=== PATIENT | female | born 1935 | race Caucasian/White ===

== ENCOUNTER 2021-09-07 06:06 | Inpatient (IN) | payer OTHER ==
[2021-09-07 06:18] VITALS: BMI 25.7
[2021-09-07] MEDS ORDERED: ACETAMINOPHEN 1000 MG/100 ML BAG IVPB ONE (07:35)
[2021-09-07] MEDS ORDERED: ONDANSETRON 4 MG/2 ML VIAL IVPUSH ONE (07:41)
[2021-09-07] MEDS ORDERED: ACETAMINOPHEN INJECTION 100 ML IVPB ONE (08:42)
[2021-09-07] MEDS ORDERED: ONDANSETRON 4 MG/2 ML VIAL ONE (08:43)
[2021-09-07 09:02] LABS: HEMATOCRIT 30.9 % (32.4-45.2); HEMOGLOBIN 10.6 GM/dL (10.7-15.3); MCH 29.2 pg (25.7-33.7); MCHC 34.4 g/dl (32.0-36.0); MEAN CELL VOLUME 84.8 fl (80-96); PLATELET COUNT 168 10^3/uL (134-434); RBC 3.65 M/mm3 (3.60-5.2); RDW 14.1 % (11.6-15.6); WHITE BLOOD COUNT 4.2 K/mm3 (4.0-10.0)
[2021-09-07 09:24] LABS: INR 1.15 (0.83-1.09); PROTHROMBIN TIME (PATIENT) 13.3 SEC (9.7-13.0)
[2021-09-07 09:26] LABS: ACTIVATED PTT 33.7 SECONDS (25.2-36.5)
[2021-09-07 09:29] LABS: CALCIUM 8.3 mg/dL (8.5-10.1)
[2021-09-07 09:30] LABS: ALBUMIN 3.3 g/dl (3.4-5.0); BLOOD UREA NITROGEN 19.7 mg/dL (7-18)
[2021-09-07 09:33] LABS: CREATININE 0.8 mg/dL (0.55-1.3)
[2021-09-07 09:34] LABS: BILIRUBIN,TOTAL 0.4 mg/dL (0.2-1)
[2021-09-07 09:38] LABS: N-TERMINAL BNP 3311.8 pg/ml (5-450)
[2021-09-07 11:32] LABS: EPI CELLS 5 /uL (0-25.1); HYALINE CASTS 0 /uL (0-3.1); URINE APPEARANCE CLEAR; URINE BACTERIA 329 /uL (0-1359); URINE BILIRUBIN NEGATIVE (NEGATIVE); URINE COLOR YELLOW; URINE GLUCOSE (UA) NEGATIVE (NEGATIVE); URINE KETONE NEGATIVE (NEGATIVE); URINE LEUK ESTERASE NEGATIVE (NEGATIVE); URINE NITRITE NEGATIVE (NEGATIVE); URINE PROTEIN 3+ (NEGATIVE); URINE RBC 38 /uL (0-23.9); URINE UROBILINOGEN 0.2 mg/dL (0.2-1.0); URINE WBC 3 /uL (0-25.8)
[2021-09-07] MEDS: ENOXAPARIN NA (PORCINE) 40 MG/0.4 ML DISP.SYRIN SQ SCH (11:35)
[2021-09-07] MEDS: DEXAMETHASONE SOD PHOSPHATE 4 MG/1 ML VIAL IVPUSH SCH (11:45)
[2021-09-07] MEDS: ASPIRIN COATED 81 MG TABLET.EC PO SCH (11:45)
[2021-09-07] MEDS ORDERED: ASPIRIN COATED 81 MG TABLET.EC ONE (11:49)
[2021-09-07] MEDS ORDERED: DEXAMETHASONE SOD PHOSPHATE 10 MG/1 ML VIAL ONE (11:50)
[2021-09-07] MEDS ORDERED: ENOXAPARIN NA (PORCINE) 80 MG/0.8 ML DISP.SYRIN SQ ONE (11:50)
[2021-09-07] MEDS ORDERED: ASPIRIN COATED 81 MG TABLET.EC PO SCH (12:45)
[2021-09-07] MEDS ORDERED: PANTOPRAZOLE 20 MG TABLET PO ONE (19:04)
[2021-09-07] MEDS: PANTOPRAZOLE 20 MG TABLET PO SCH (19:06)
[2021-09-07 19:52] LABS: IRON SERUM 12 ug/dL (50-175); TOTAL IRON BINDING CAPACITY 229 ug/dL (250-450)
[2021-09-07] MEDS ORDERED: ATORVASTATIN CA 10 MG TABLET (FP) ONE (21:34)
[2021-09-07] MEDS: ATORVASTATIN CA 10 MG TABLET (FP) PO SCH (22:32)
[2021-09-08] MEDS ORDERED: MELATONIN 5 MG TABLETS PO ONE (03:59)
[2021-09-08] MEDS ORDERED: ACETAMINOPHEN 325 MG TABLET (FP) ONE (06:16)
[2021-09-08 08:28] LABS: BASO % 0.1 % (0-2.0); HEMATOCRIT 33.4 % (32.4-45.2); HEMOGLOBIN 11.2 GM/dL (10.7-15.3); LYMPH % 12.1 % (8-40); MCH 28.8 pg (25.7-33.7); MCHC 33.6 g/dl (32.0-36.0); MEAN CELL VOLUME 85.7 fl (80-96); MEAN PLT VOLUME 7.5 fl (7.5-11.1); MONO % 11.7 % (3.8-10.2); NEUT % 76.1 % (42.8-82.8); PLATELET COUNT 203 10^3/uL (134-434); RDW 14.3 % (11.6-15.6); WHITE BLOOD COUNT 5.3 K/mm3 (4.0-10.0)
[2021-09-08 08:37] LABS: INR 1.12 (0.83-1.09); PROTHROMBIN TIME (PATIENT) 12.9 SEC (9.7-13.0)
[2021-09-08 09:04] LABS: CALCIUM 8.8 mg/dL (8.5-10.1)
[2021-09-08 09:05] LABS: ALBUMIN 3.3 g/dl (3.4-5.0); BLOOD UREA NITROGEN 25.4 mg/dL (7-18); MAGNESIUM 2.1 mg/dL (1.8-2.4)
[2021-09-08 09:07] LABS: PHOSPHOROUS 2.6 mg/dL (2.5-4.9)
[2021-09-08 09:09] LABS: TOT PROT 6.1 g/dl (6.4-8.2)
[2021-09-08 09:18] LABS: BILIRUBIN,TOTAL 0.6 mg/dL (0.2-1)
[2021-09-08] MEDS ORDERED: REMDESIVIR 200 MG in SODIUM CHLORIDE 250 ML IVPB ONE ×2 (10:00→17:15)
[2021-09-08] MEDS ORDERED: ENOXAPARIN NA (PORCINE) 40 MG/0.4 ML DISP.SYRIN SQ ONE (10:14)
[2021-09-08] MEDS ORDERED: DEXAMETHASONE SOD PHOSPHATE 10 MG/1 ML VIAL ONE (10:14)
[2021-09-08] MEDS ORDERED: LISINOPRIL 20 MG TABLET ONE (10:14)
[2021-09-08] MEDS ORDERED: ASPIRIN COATED 81 MG TABLET.EC ONE (10:14)
[2021-09-08] MEDS ORDERED: PANTOPRAZOLE 20 MG TABLET PO ONE (10:14)
[2021-09-08] MEDS: PANTOPRAZOLE 20 MG TABLET PO SCH (10:26)
[2021-09-08] MEDS: LISINOPRIL 20 MG TABLET PO SCH (10:26)
[2021-09-08] MEDS: ASPIRIN COATED 81 MG TABLET.EC PO SCH (10:26)
[2021-09-08] MEDS: DEXAMETHASONE SOD PHOSPHATE 4 MG/1 ML VIAL IVPUSH SCH (10:26)
[2021-09-08] MEDS: ENOXAPARIN NA (PORCINE) 40 MG/0.4 ML DISP.SYRIN SQ SCH (10:26)
[2021-09-08] MEDS ORDERED: SENNOSIDES 8.6MG TABLET (FP) PO PRN (13:43)
[2021-09-08] MEDS: ATORVASTATIN CA 10 MG TABLET (FP) PO SCH (21:44)
[2021-09-09] MEDS: ACETAMINOPHEN 325 MG TABLET (FP) PO PRN ×2 (07:14→11:21)
[2021-09-09 08:55] LABS: HEMATOCRIT 35.2 % (32.4-45.2); HEMOGLOBIN 11.4 GM/dL (10.7-15.3); LYMPH % 6.8 % (8-40); MCHC 32.4 g/dl (32.0-36.0); MEAN CELL VOLUME 86.3 fl (80-96); MEAN PLT VOLUME 7.9 fl (7.5-11.1); MONO % 8.3 % (3.8-10.2); NEUT % 84.9 % (42.8-82.8); PLATELET COUNT 249 10^3/uL (134-434); RBC 4.08 M/mm3 (3.60-5.2); RDW 14.1 % (11.6-15.6); WHITE BLOOD COUNT 11.5 K/mm3 (4.0-10.0)
[2021-09-09 09:25] LABS: CALCIUM 9.3 mg/dL (8.5-10.1)
[2021-09-09 09:26] LABS: ALBUMIN 3.3 g/dl (3.4-5.0); BLOOD UREA NITROGEN 44.2 mg/dL (7-18)
[2021-09-09 09:29] LABS: CREATININE 1.2 mg/dL (0.55-1.3)
[2021-09-09 09:31] LABS: BILIRUBIN,TOTAL 0.4 mg/dL (0.2-1); TOT PROT 6.2 g/dl (6.4-8.2)
[2021-09-09] MEDS: PANTOPRAZOLE 20 MG TABLET PO SCH (09:50)
[2021-09-09] MEDS: LISINOPRIL 20 MG TABLET PO SCH (09:50)
[2021-09-09] MEDS: ASPIRIN COATED 81 MG TABLET.EC PO SCH (09:50)
[2021-09-09] MEDS: REMDESIVIR 100 MG in SODIUM CHLORIDE 250 ML IVPB SCH (09:51)
[2021-09-09] MEDS: ENOXAPARIN NA (PORCINE) 40 MG/0.4 ML DISP.SYRIN SQ SCH (09:51)
[2021-09-09] MEDS: DEXAMETHASONE SOD PHOSPHATE 4 MG/1 ML VIAL IVPUSH SCH (09:57)
[2021-09-09] MEDS: ATORVASTATIN CA 10 MG TABLET (FP) PO SCH (21:15)
[2021-09-10 08:06] LABS: BASO % 0.1 % (0-2.0); HEMATOCRIT 33.7 % (32.4-45.2); HEMOGLOBIN 11.3 GM/dL (10.7-15.3); LYMPH % 7.8 % (8-40); MCH 28.7 pg (25.7-33.7); MCHC 33.6 g/dl (32.0-36.0); MEAN CELL VOLUME 85.5 fl (80-96); MEAN PLT VOLUME 7.6 fl (7.5-11.1); MONO % 9.5 % (3.8-10.2); NEUT % 82.6 % (42.8-82.8); PLATELET COUNT 240 10^3/uL (134-434); RBC 3.94 M/mm3 (3.60-5.2); RDW 14.5 % (11.6-15.6); WHITE BLOOD COUNT 9.8 K/mm3 (4.0-10.0)
[2021-09-10 08:27] LABS: ALBUMIN 3.2 g/dl (3.4-5.0); CALCIUM 9.1 mg/dL (8.5-10.1)
[2021-09-10 08:28] LABS: BLOOD UREA NITROGEN 46.6 mg/dL (7-18)
[2021-09-10 08:31] LABS: CREATININE 1.1 mg/dL (0.55-1.3)
[2021-09-10 08:32] LABS: BILIRUBIN,TOTAL 0.5 mg/dL (0.2-1)
[2021-09-10] MEDS: PANTOPRAZOLE 20 MG TABLET PO SCH (09:28)
[2021-09-10] MEDS: LISINOPRIL 20 MG TABLET PO SCH (09:28)
[2021-09-10] MEDS: ASPIRIN COATED 81 MG TABLET.EC PO SCH (09:28)
[2021-09-10] MEDS: REMDESIVIR 100 MG in SODIUM CHLORIDE 250 ML IVPB SCH (09:28)
[2021-09-10] MEDS: ENOXAPARIN NA (PORCINE) 40 MG/0.4 ML DISP.SYRIN SQ SCH (09:29)
[2021-09-10] MEDS: DEXAMETHASONE SOD PHOSPHATE 4 MG/1 ML VIAL IVPUSH SCH (09:29)
[2021-09-10] MEDS ORDERED: CEPHALEXIN MONOHYDRATE 500 MG CAPSULE (UD) PO SCH (11:15)
[2021-09-10] MEDS: CEPHALEXIN MONOHYDRATE 500 MG CAPSULE (UD) PO SCH ×2 (13:20→22:05)
[2021-09-10] MEDS: ATORVASTATIN CA 10 MG TABLET (FP) PO SCH (22:05)
[2021-09-11 08:32] LABS: BASO % 0.1 % (0-2.0); HEMOGLOBIN 11.2 GM/dL (10.7-15.3); LYMPH % 8.5 % (8-40); MEAN CELL VOLUME 85.3 fl (80-96); MEAN PLT VOLUME 7.8 fl (7.5-11.1); MONO % 11.7 % (3.8-10.2); NEUT % 79.7 % (42.8-82.8); PLATELET COUNT 259 10^3/uL (134-434); RBC 3.87 M/mm3 (3.60-5.2); RDW 14.6 % (11.6-15.6)
[2021-09-11 08:53] LABS: BLOOD UREA NITROGEN 47.7 mg/dL (7-18); CALCIUM 8.5 mg/dL (8.5-10.1)
[2021-09-11 08:58] LABS: BILIRUBIN,TOTAL 0.5 mg/dL (0.2-1); TOT PROT 5.8 g/dl (6.4-8.2)
[2021-09-11] MEDS: ASPIRIN COATED 81 MG TABLET.EC PO SCH (09:42)
[2021-09-11] MEDS: LISINOPRIL 20 MG TABLET PO SCH (09:42)
[2021-09-11] MEDS: DEXAMETHASONE SOD PHOSPHATE 4 MG/1 ML VIAL IVPUSH SCH (09:42)
[2021-09-11] MEDS: PANTOPRAZOLE 20 MG TABLET PO SCH (09:42)
[2021-09-11] MEDS: CEPHALEXIN MONOHYDRATE 500 MG CAPSULE (UD) PO SCH ×2 (09:42→21:29)
[2021-09-11] MEDS: ENOXAPARIN NA (PORCINE) 40 MG/0.4 ML DISP.SYRIN SQ SCH ×2 (09:43→09:58)
[2021-09-11] MEDS: REMDESIVIR 100 MG in SODIUM CHLORIDE 250 ML IVPB SCH (10:09)
[2021-09-11] MEDS: ATORVASTATIN CA 10 MG TABLET (FP) PO SCH (21:29)
[2021-09-12 10:01] LABS: BASO % 0.2 % (0-2.0); HEMATOCRIT 35.3 % (32.4-45.2); HEMOGLOBIN 11.7 GM/dL (10.7-15.3); LYMPH % 10.6 % (8-40); MCH 28.5 pg (25.7-33.7); MCHC 33.1 g/dl (32.0-36.0); MEAN CELL VOLUME 86.1 fl (80-96); MEAN PLT VOLUME 8.2 fl (7.5-11.1); MONO % 11.1 % (3.8-10.2); NEUT % 78.1 % (42.8-82.8); PLATELET COUNT 290 10^3/uL (134-434)
[2021-09-12] MEDS: LISINOPRIL 20 MG TABLET PO SCH (10:24)
[2021-09-12] MEDS: ASPIRIN COATED 81 MG TABLET.EC PO SCH (10:24)
[2021-09-12] MEDS: PANTOPRAZOLE 20 MG TABLET PO SCH (10:24)
[2021-09-12] MEDS: CEPHALEXIN MONOHYDRATE 500 MG CAPSULE (UD) PO SCH ×2 (10:24→21:41)
[2021-09-12] MEDS: ENOXAPARIN NA (PORCINE) 40 MG/0.4 ML DISP.SYRIN SQ SCH (10:25)
[2021-09-12] MEDS: DEXAMETHASONE SOD PHOSPHATE 4 MG/1 ML VIAL IVPUSH SCH (10:26)
[2021-09-12] MEDS: REMDESIVIR 100 MG in SODIUM CHLORIDE 250 ML IVPB SCH (10:26)
[2021-09-12 10:35] LABS: CALCIUM 8.9 mg/dL (8.5-10.1)
[2021-09-12 10:36] LABS: ALBUMIN 3.2 g/dl (3.4-5.0); BLOOD UREA NITROGEN 50.7 mg/dL (7-18); MAGNESIUM 1.5 mg/dL (1.8-2.4)
[2021-09-12 10:39] LABS: PHOSPHOROUS 3.7 mg/dL (2.5-4.9)
[2021-09-12 10:41] LABS: BILIRUBIN,TOTAL 0.7 mg/dL (0.2-1); TOT PROT 5.9 g/dl (6.4-8.2)
[2021-09-12] MEDS ORDERED: MAGNESIUM 1GM/D5W - 1 GM/100 ML IVPB IVPB ONE (17:30)
[2021-09-12] MEDS: ATORVASTATIN CA 10 MG TABLET (FP) PO SCH (21:41)
[2021-09-13 06:26] VITALS: PULSE 72
[2021-09-13] MEDS: CEPHALEXIN MONOHYDRATE 500 MG CAPSULE (UD) PO SCH (09:43)
[2021-09-13] MEDS: LISINOPRIL 20 MG TABLET PO SCH (09:43)
[2021-09-13] MEDS: DEXAMETHASONE SOD PHOSPHATE 4 MG/1 ML VIAL IVPUSH SCH (09:43)
[2021-09-13] MEDS: ASPIRIN COATED 81 MG TABLET.EC PO SCH (09:43)
[2021-09-13] MEDS: PANTOPRAZOLE 20 MG TABLET PO SCH (09:43)
[2021-09-13] MEDS: ENOXAPARIN NA (PORCINE) 40 MG/0.4 ML DISP.SYRIN SQ SCH (09:45)
[2021-09-13 10:09] LABS: BASO % 0.1 % (0-2.0); HEMATOCRIT 35.4 % (32.4-45.2); HEMOGLOBIN 11.3 GM/dL (10.7-15.3); LYMPH % 9.6 % (8-40); MCH 27.8 pg (25.7-33.7); MEAN CELL VOLUME 86.9 fl (80-96); MEAN PLT VOLUME 8.5 fl (7.5-11.1); NEUT % 80.3 % (42.8-82.8); PLATELET COUNT 279 10^3/uL (134-434); RBC 4.07 M/mm3 (3.60-5.2); RDW 14.1 % (11.6-15.6); WHITE BLOOD COUNT 11.2 K/mm3 (4.0-10.0)
[2021-09-13 10:51] LABS: CALCIUM 8.8 mg/dL (8.5-10.1)
[2021-09-13 10:52] LABS: BLOOD UREA NITROGEN 55.2 mg/dL (7-18); MAGNESIUM 2.6 mg/dL (1.8-2.4)
[2021-09-13 10:55] LABS: CREATININE 1.2 mg/dL (0.55-1.3)
[2021-09-13 10:56] LABS: BILIRUBIN,TOTAL 0.6 mg/dL (0.2-1); TOT PROT 5.7 g/dl (6.4-8.2)
[2021-09-13 13:42] VITALS: BP 117/56; TEMP 98.1
== END 2021-09-13 18:29 | disposition home or self-care (01) | DRG 177 ==
LOC: JER 06:06 → JERBED 06:47 → OBSVTOIN 11:33 → J4S 09-08 20:06
PROVIDERS: ADMIT Internal Medicine; ATTEND Internal Medicine
PROC: XW033E5 Introduction of Remdesivir Anti-infective into Peripheral Vein, Percutaneous Approach, New Technology Group 5 (ICD-10-PCS; principal; 2021-09-08)
DX: U07.1 COVID-19 (principal); J96.01 Acute respiratory failure with hypoxia; J12.82 Pneumonia due to coronavirus disease 2019; I24.8 Other forms of acute ischemic heart disease; I50.32 Chronic diastolic (congestive) heart failure; N39.0 Urinary tract infection, site not specified; Z95.2 Presence of prosthetic heart valve; F41.9 Anxiety disorder, unspecified; F41.0 Panic disorder [episodic paroxysmal anxiety]; Z88.0 Allergy status to penicillin; R55 Syncope and collapse; D64.9 Anemia, unspecified; I27.20 Pulmonary hypertension, unspecified; I48.0 Paroxysmal atrial fibrillation; I11.0 Hypertensive heart disease with heart failure; I25.10 Atherosclerotic heart disease of native coronary artery without angina pectoris; Z95.0 Presence of cardiac pacemaker; R91.1 Solitary pulmonary nodule
CPT/HCPCS: 36415; 71045-TC-FY; 71250-TC; 80048; 80053; 81003; 82728; 83540; 83550; 83605; 83615; 83735; 83880; 84100; 84484; 85025; 85027; 85379; 85610; 85651; 85730; 86140; 87040; 87086; 87186; 87804; 93005; 93010; 97116-GP; 97161-GP; 99285-25; C9399; C9803; G0378; J0131; U0003; U0005

== ENCOUNTER 2023-06-09 22:01 | Emergency (ER) | payer OTHER ==
[2023-06-09 22:07] VITALS: BP 187/81; PULSE 66; RESP 18; TEMP 98.9; BMI 25.7
[2023-06-09] MEDS ORDERED: KETOROLAC TROMETHAMINE 60 MG/2 ML VIAL IM ONE (22:31)
[2023-06-09] MEDS ORDERED: KETOROLAC TROMETHAMINE 60 MG/2 ML VIAL ONE (22:33)
== END 2023-06-09 22:39 | disposition home or self-care (01) ==
LOC: FER 22:01
PROC: 3E0233Z Introduction of Anti-inflammatory into Muscle, Percutaneous Approach (ICD-10-PCS; principal; 2023-06-09)
DX: M79.642 Pain in left hand (principal)
CPT/HCPCS: 99284-25